=== PATIENT | female | born 2000 | race Caucasian/White ===

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

== ENCOUNTER 2023-10-12 22:38 | Emergency (ER) | payer OTHER ==
[2023-10-12 22:50] VITALS: O2SAT 100
[2023-10-12 23:34] LABS: BASOPHILS # (AUTO) 0.1 10^3/uL (0.0-0.1); BASOPHILS % (AUTO) 0.9 %; EOSINOPHILS # (AUTO) 0.2 10^3/uL (0.0-0.7); EOSINOPHILS % (AUTO) 2.6 %; HCT - HEMATOCRIT 40.9 % (37.0-47.0); HGB - HEMOGLOBIN 13.9 g/dL (12.0-16.0); LYMPHOCYTES # (AUTO) 1.9 10^3/uL (1.5-3.5); LYMPHOCYTES % (AUTO) 32.6 %; MEAN CORPUSCULAR HEMOGLOBIN 29.3 pg (27.0-31.0); MEAN CORPUSCULAR VOLUME 86.3 fL (81.0-99.0); MEAN PLATELET VOLUME 8.8 fL (7.9-10.8); MONOCYTES # (AUTO) 0.5 10^3/uL (0.0-1.0); MONOCYTES % (AUTO) 8.7 %; NEUTROPHILS # (AUTO) 3.2 10^3/uL (1.5-6.6); NEUTROPHILS % (AUTO) 54.9 %; PLT - PLATELET COUNT 286 10^3/uL (130-450); RED BLOOD COUNT 4.74 10^6/uL (4.20-5.40); RED CELL DISTRIBUTION WIDTH 11.7 % (12.0-15.0); WHITE BLOOD COUNT 5.8 x10^3/uL (4.8-10.8)
--- NOTE | 2023-10-12 23:52 | ED Physician Documentation ---
PD HPI GI BLEED - Stated complaint Stated Complaint: GI/BLOOD - Chief complaint Chief Complaint: Abd Pain - History obtained from History obtained from: Patient - Additional information Additional information: HPI from patient. Patient plates 1 episode of bright red blood per rectum at approximately 10 PM tonight. She did not note any clots. She initially thought she was going to have a bowel movement, but she says that she ended up not having any stool output. She says she has had recent similar episodes but much smaller amounts of blood with these previous episodes ("1 or 2 drops", per patient). She says she was having some episodic right upper quadrant abdominal pain tonight but this has resolved by the time of this HPI. She denies any other pain including andreia-anal pain with tonight's episodes but she says she has had episodes in the recent past of a painful perianal lump. PD PAST MEDICAL HISTORY - Past Medical History Past Medical History: No GI: Hemorrhoids - Past Surgical History Past Surgical History: No - Present Medications Home Medications: Ambulatory Orders Medication Instructions Recorded Confirmed Amox/Clav 875/125 [Augmentin] 1 each PO Q12H #20 tablet 06/30/18 Hydrocodone/Acetaminophen 1 each PO Q6H PRN #10 tablet 03/12/19 [Hydrocodon-Acetaminophen 5-325] Ibuprofen [Motrin] 400 mg PO TID PRN #20 tablet 03/12/19 Lidocaine Jelly 2% [Glydo] 4 ml TOP Q2H PRN #1 tube 03/12/19 - Allergies Allergies/Adverse Reactions: Allergies Allergy/AdvReac Type Severity Reaction Status Date / Time No Known Drug Allergies Allergy Verified 10/12/23 22:43 - Social History Does the pt smoke?: No Smoking Status: Never smoker Does the pt drink ETOH?: No Does the pt have substance abuse?: No - Immunizations Immunizations are current?: Yes PD ED PE NORMAL - Vitals Vital signs reviewed: Yes - General General: Alert and oriented X 3, No acute distress, Well developed/nourished - Cardiac Cardiac: RRR, No murmur - Abdomen Abdomen: Soft, Non tender PD ED PE EXPANDED - Rectal Rectal: Hemorrhoid (small posterolateral hemorrhoid, nontender, with small fresh, aderent clot of blood ), [employer] Home Makeup Artist present (JOANA Toldeo), Other (external exam only) Results - Vitals Vitals: Vital Signs - 24 hr 06/21/24 06/22/24 22:44 00:34 Temperature 36.3 C L Heart Rate 94 80 Respiratory 16 16 Rate Blood Pressure 147/71 H 117/75 O2 Saturation 100 100 Oxygen O2 Source Room air - Labs Labs: Laboratory Tests 10/12/23 10/12/23 23:32 23:32 WBC 5.8 RBC 4.74 Hgb 13.9 Hct 40.9 MCV 86.3 MCH 29.3 MCHC 34.0 RDW 11.7 L Plt Count 286 MPV 8.8 Neut # (Auto) 3.2 Lymph # (Auto) 1.9 [place] # (Auto) 0.5 Eos # (Auto) 0.2 Baso # (Auto) 0.1 Absolute Nucleated RBC 0.00 Nucleated RBC % 0.0 Sodium 138 Potassium 3.8 Chloride 108 Carbon Dioxide 23 Anion Gap 7.0 BUN 25 H Creatinine 0.7 Estimated GFR (MDRD) 105 Glucose 100 Calcium 9.1 Total Bilirubin 0.3 AST 17 ALT 34 Alkaline Phosphatase 49 Total Protein 6.9 Albumin 4.3 Globulin 2.6 Albumin/Globulin Ratio 1.7 Lipase 10 L PD Medical Decision Making - ED course Complexity details: reviewed results, considered differential, d/w patient ED course: Patient presents with episode of primary blood per rectum tonight. Initially she says this was a single episode, although she does not then go on to say she has had a few drops of bright red blood with previous, recent bowel movements. On exam, she has a non-tender hemorrhoid without any evidence of thrombosis; there is a small blood clot adherent to this hemorrhoid which essentially co nfirms this as the source of the bleeding tonight. Normal CBC with only exception of low RDW. Normal ER abdominal panel except for elevated BUN (25). Lipase is flagged as abnormally low (10) which is a noncontributory/insignificant finding. Results discussed with patient, return precautions reviewed. Departure - Departure Disposition: 01 Home, Self Care Clinical Impression: Hemorrhoid, Hematochezia Condition: Good Instructions: ED Hemorrhoids Follow-Up: [facility] [Provider Group] Comments: Your blood work was without concerning/diagnostic results; this includes your red blood cell levels (hemoglobin and hematocrit). On physical exam, you do have a small hemorrhoid with a small, adherent fresh clot of blood; this confirms the hemorrhoid as the source of bleeding. Discharge Date/Time: 10/13/23 00:35
[2023-10-12 23:53] LABS: ALBUMIN 4.3 g/dL (3.2-5.5); ALBUMIN/GLOBULIN RATIO 1.7 (1.0-2.2); BILIRUBIN,TOTAL 0.3 mg/dL (0.2-1.0); CALCIUM 9.1 mg/dL (8.5-10.3); CREATININE 0.7 mg/dL (0.6-1.3); POTASSIUM 3.8 mmol/L (3.5-4.5); TOTAL PROTEIN 6.9 g/dL (6.4-8.9)
[2023-10-13 00:40] VITALS: BP 117/75
== END 2023-10-13 00:35 | disposition home or self-care (01) ==
LOC: ED 22:38
DX: K64.9 Unspecified hemorrhoids (principal); K92.1 Melena
CPT/HCPCS: 36415; 80053; 83690; 85025; 99283